=== PATIENT | male | born 1960 | race African-American/Black ===

== ENCOUNTER 2022-07-23 18:45 | Emergency (ER) | payer OTHER ==
--- OUTSIDE RECORDS SUMMARY | 2022-07-23 18:55 | XMS REPORT | Continuity of Care Document ---
:1960 Author Organization [facility] t Address [address] [place] [address] Care Team Providers Name Role Phone Unavailable Unavailable Unavailable Problems This patient has no known problems. Allergies, Adverse Reactions, Alerts This patient has no known allergies or adverse reactions. Medications This patient has no known medications. Procedures This patient has no known procedures. Encounters Start End Encounter Admission Attending Care Care Encounter Source Date/Time Date/Time Type Type Clinicians Facility Department ID 2022-07-23 2022-07-23 Outpatient [facility] [id number] Gene 10:17:35 10:17:35 [id number] Diaz 2022-07-11 2022-07-11 Outpatient [facility] [id number] Gene 16:49:41 16:49:41 [id number] F Diaz Results This patient has no known results.
[2022-07-23] MEDS ORDERED: BENZONATATE 100 MG CAP PO ONE (20:06)
[2022-07-23 20:14] LABS: SARS-COV-2 RT PCR NEGATIVE (NEGATIVE)
[2022-07-23] MEDS ORDERED: ACETAMINOPHEN 500 MG TAB ONE (20:16)
--- NOTE | 2022-07-23 20:24 | EDPHYS ---
Physician Documentation [facility] Name: Corby Peter Age: 61 yrs Sex: Male : 1960 Arrival Date: 07/23/2022 Time: 18:53 Bed DIS2 Private MD: ED Physician Walt Knowles HPI: 07/23 19:49 This 61 yrs old Black Male presents to ER via Ambulatory with complaints of Flu pm1 Symptoms. 19:49 The patient or guardian reports cough, with productive sputum, that is yellow. Onset: pm1 The symptoms/episode began/occurred 3 day(s) ago. Severity of symptoms: in the emergency department the symptoms are unchanged. Modifying factors: The symptoms are alleviated by nothing, the symptoms are aggravated by nothing. Associated signs and symptoms: Pertinent positives: chills and body aches at night, Pertinent negatives: chest pain, ear ache, fever, sore throat, shortness of breath. The patient has not experienced similar symptoms in the past. The patient has not recently seen a physician. Historical: - Allergies: 19:17 No Known Allergies; kd3 - Home Meds: 19:17 tamsulosin 0.4 mg oral cap [Active]; atorvastatin oral [Active]; kd3 - PMHx: 19:17 Hypercholesterolemia; kd3 - Immunization history:: Adult Immunizations up to date. - Social history:: Smoking status: Patient reports the use of cigarette tobacco products. ROS: 19:49 Eyes: Negative for injury, pain, redness, and discharge, ENT: Negative for injury, pm1 pain, and discharge, Neck: Negative for injury, pain, and swelling, Cardiovascular: Negative for chest pain, palpitations, and edema. 19:49 Abdomen/GI: Negative for abdominal pain, nausea, vomiting, diarrhea, and constipation, Back: Negative for injury and pain, MS/Extremity: Negative for injury and deformity, Skin: Negative for injury, rash, and discoloration, Neuro: Negative for headache, weakness, numbness, tingling, and seizure. 19:49 Constitutional: Positive for body aches, chills, Negative for fever, poor PO intake. 19:49 Respiratory: Positive for cough, with yellow sputum, Negative for shortness of breath. 19:49 All other systems are negative. Exam: 19:49 Constitutional: This is a well developed, well nourished patient who is awake, alert, pm1 and in no acute distress. Head/Face: Normocephalic, atraumatic. 19:49 Back: No spinal tenderness. No costovertebral tenderness. Full range of motion. Skin: Warm, dry with normal turgor. Normal color with no rashes, no lesions, and no evidence of cellulitis. MS/ Extremity: Pulses equal, no cyanosis. Neurovascular intact. Full, normal range of motion. 19:49 Eyes: Exam is negative for acute changes, Periorbital structures: no acute changes, Extraocular movements: no acute changes, Conjunctiva: no acute changes. 19:49 ENT: Exam is negative for acute changes, External ear(s): no acute changes, Ear canal(s): no acute changes, TM's: no acute changes, Mouth: no acute changes, Lips: normal, moist, Oral mucosa: normal, pink and intact, moist, Posterior pharynx: no acute changes. 19:49 Cardiovascular: Exam negative for acute changes, Rate: normal, Rhythm: regular, Pulses: no pulse deficits are appreciated. 19:49 Respiratory: Exam negative for acute changes, respiratory distress, shortness of breath. 19:49 Neuro: Exam negative for acute changes, Orientation: is normal, Mentation: is normal, Motor: is normal, moves all fours, Gait: is steady, at a normal pace, without difficulty. Vital Signs: 19:14 BP 114 / 74; Pulse 78; Resp 19; Temp 98.1(O); Pulse Ox 98% on R/A; Weight 68.95 kg; kd3 Height 5 ft. 11 in. (180.34 cm); 19:14 Body Mass Index 21.20 (68.95 kg, 180.34 cm) kd3 MDM: 19:21 Patient medically screened. pm1 19:22 Data reviewed: vital signs. pm1 19:49 ED course: Patient wants a medication to help with his cough and to help dry up his pm1 sinus/nasal congestion. However patient does not want any narcotic medication due to history of recovering addiction. Tussionex would have been a good drug to use. Will give patient Tessalon Perle in the ER if available and discharge him home with Bromfed-DM. 20:23 Counseling: I had a detailed discussion with the patient and/or guardian regarding: the pm1 historical points, exam findings, and any diagnostic results supporting the discharge/admit diagnosis, lab results, the need for outpatient follow up, to return to the emergency department if symptoms worsen or persist or if there are any questions or concerns that arise at home. 20:23 Differential Diagnosis: Influenza Upper Respiratory Infection Other covid, strep. pm1 07/23 19:24 Order name: COVID-19/FLU A+B; Complete Time: 20:16 pm1 Administered Medications: 20:11 Drug: Tessalon Perle (benzonatate) 200 mg Route: PO; jb4 20:13 Drug: Tylenol 1000 mg Route: PO; jb4 Disposition: 07/24 00:53 Co-signature as Attending Physician, Walt Knowles MD I reviewed the patient's care rt provided by the Advanced Practice Provider and agree with the diagnosis and treatment plan. Disposition Summary: 07/23/22 20:24 Discharge Ordered Location: Home pm1 Problem: new pm1 Symptoms: have improved pm1 Condition: Stable pm1 Diagnosis - Acute upper respiratory infection, unspecified pm1 Followup: pm1 - With: Emergency Department - When: As needed - Reason: Worsening of condition Followup: pm1 - With: Private Physician - When: 2 - 3 days - Reason: Recheck today's complaints, Continuance of care, Re-evaluation by your physician Discharge Instructions: - Discharge Summary Sheet pm1 - Upper Respiratory Infection, Adult pm1 - Viral Respiratory Infection pm1 Forms: - Medication Reconciliation Form pm1 - Work release form pm1 - Thank You Letter pm1 - Antibiotic Education pm1 - Prescription Opioid Use pm1 Prescriptions: - Bromfed DM 2-30-10 mg/5 mL Oral syrup - take 10 milliliter by ORAL route every 4 hours As needed; 200 milliliter; pm1 Refills: 0, Product Selection Permitted Signatures: Dispatcher [employer] Ismael Edwards, ARIANNA PASSENGER BOOKING CLERK pm1 Ezequiel Neely, RN RN jb4 Silvana Wakefield RN RN kd3 Walt Knowles MD MD rt
--- NOTE | 2022-07-23 20:24 | ER ---
Nurse's Notes [facility] Name: Corby Peter Age: 61 yrs Sex: Male : 1960 Arrival Date: 07/23/2022 Time: 18:53 Bed DIS2 Private MD: Diagnosis: Acute upper respiratory infection, unspecified Presentation: 07/23 19:16 Chief complaint: Patient states: I have a lot of sinus pressure and drainage. I have kd3 not spiked a fever but I feel very achy. Coronavirus screen: Vaccine status: Patient reports being unvaccinated. Ebola Screen: No symptoms or risks identified at this time. Initial Sepsis Screen: Does the patient meet any 2 criteria? No. Patient's initial sepsis screen is negative. Does the patient have a suspected source of infection? No. Patient's initial sepsis screen is negative. Risk Assessment: Do you want to hurt yourself or someone else? Patient reports no desire to harm self or others. Onset of symptoms was July 23, 2022. 19:16 Method Of Arrival: Ambulatory kd3 19:16 Acuity: YUKI 4 kd3 Triage Assessment: 19:18 General: Appears uncomfortable, Behavior is calm, cooperative. Pain: Complains of pain kd3 in sinuses. Historical: - Allergies: 19:17 No Known Allergies; kd3 - Home Meds: 19:17 tamsulosin 0.4 mg oral cap [Active]; atorvastatin oral [Active]; kd3 - PMHx: 19:17 Hypercholesterolemia; kd3 - Immunization history:: Adult Immunizations up to date. - Social history:: Smoking status: Patient reports the use of cigarette tobacco products. Screenin:34 [facility] ED Fall Risk Assessment (Adult) History of falling in the last 3 months, kl including since admission No falls in past 3 months (0 pts) Confusion or Disorientation No (0 pts) Intoxicated or Sedated No (0 pts) Impaired Gait No (0 pts) Mobility Assist Device Used No (0 pt) Altered Elimination No (0 pt) Score/Fall Risk Level 0 - 2 = Low Risk Oriented to surroundings, Maintained a safe environment. Abuse screen: Denies threats or abuse. Nutritional screening: No deficits noted. Tuberculosis screening: No symptoms or risk factors identified. Assessment: 20:34 Reassessment: Patient appears in no apparent distress at this time. Patient and/or kl family updated on plan of care and expected duration. Pain level reassessed. Patient is alert, oriented x 3, equal unlabored respirations, skin warm/dry/pink. Patient states feeling better. Patient states symptoms have improved. Vital Signs: 19:14 BP 114 / 74; Pulse 78; Resp 19; Temp 98.1(O); Pulse Ox 98% on R/A; Weight 68.95 kg; kd3 Height 5 ft. 11 in. (180.34 cm); 19:14 Body Mass Index 21.20 (68.95 kg, 180.34 cm) kd3 ED Course: 18:53 Patient arrived in ED. rg4 19:17 Triage completed. kd3 19:18 Arm band placed on right wrist. kd3 19:21 Ismael Valentin NP is PHCP. pm1 19:21 Walt Knowles MD is Attending Physician. pm1 19:32 COVID-19/FLU A+B Sent. jb4 20:35 Patient has correct armband on for positive identification. kl 20:35 No provider procedures requiring assistance completed. Patient did not have IV access kl during this emergency room visit. Administered Medications: 20:11 Drug: Tessalon Perle (benzonatate) 200 mg Route: PO; jb4 20:13 Drug: Tylenol 1000 mg Route: PO; jb4 Medication: 20:35 VIS not applicable for this client. kl Outcome: 20:24 Discharge ordered by . pm1 20:35 Discharged to home ambulatory. kl 20:35 Condition: good 20:35 Discharge instructions given to patient, Instructed on discharge instructions, follow up and referral plans. medication usage, Demonstrated understanding of instructions, follow-up care, medications. 20:35 Patient left the ED. kl Signatures: Linda Fairchild RN RN kl Marinas, Patrick, NP [employer] pm1 Annie Dacosta rg4 Ezequiel Neely RN RN jb4 Silvana Wakefield RN RN kd3
[2022-07-23 20:48] VITALS: BP 114/74; TEMP 98.1; O2SAT 98
== END 2022-07-23 20:35 | disposition home or self-care (01) ==
LOC: ER 18:45
DX: J06.9 Acute upper respiratory infection, unspecified (principal); E78.00 Pure hypercholesterolemia, unspecified; Z72.0 Tobacco use; Z20.822 Contact with and (suspected) exposure to COVID-19
CPT/HCPCS: 0240U